=== PATIENT | male | born 1975 | race Caucasian/White ===

== ENCOUNTER → 2017-02-07 | Outpatient (CLI) | payer BC, OTHER ==
[~2017-02-07] VITALS: Ht 182.9 cm; Wt 151.0 kg
[~2017-02-07] MED LIST: CALCITRIOL100 GM TP; CALCIUM 500 +1 EAC5 PO; CLOBETASOL PROP60 G1 TP; CYMBALTA60 MG PO; GEMFIBROZIL 60600 M1 PO; LISINOPRIL-HCT1 EAC1 PO; MIRAPEX1 MG PO; MS CONTIN15 MG PO; MULTIVITAMINS PO; NAPROSYN500 MG PO; NORCO 10-325 T1 EACH PO; OXYCODONE HCL15 MG PO; PERCOCET 7.5-31 EACH PO; PROBIOTIC1 EAC1 PO; TRAMADOL 50 MG50 MG PO; VITAMIN D2000 UNIT PO; ZANAFLEX4 MG PO; ZYRTEC10 M4 PO
--- NOTE | ~2017-02-07 | HPC ---
[facility] [address] [place] [address] PAIN MANAGEMENT CONSULTATION Name: RUDDY CANAS Room #: REG [facility]Ad[facility]ist [facility] VallejoBraulio.#: [id number] Admission: 02/07/17 Attend Phys: Richard Canas DO Discharge: Date of : 75 Report #: [id number] THIS REPORT FOR: //name// CC: Juanjo Canas HISTORY OF PRESENT ILLNESS: The patient is a 41-year-old gentleman well known to the pain clinic, typically treated for axial back pain, lumbar radiculopathy, lumbar spondylosis, requiring complex medication management. Comorbidity includes morbid obesity. Last seen in the pain clinic 12/13/2015, continued on baseline medication including Percocet 7.5/325, one to two tablets after work and at bedtime, tramadol 50 mg 2 tablets 3 times a day, tizanidine 4 mg 3 times a day as needed for muscle spasm. Last urine drug screen 08/23/2016 was positive for prescribed medications. He returns to the pain clinic today noting pain has begun to get a little worse recently. He had fallen off of a ladder when he climbing down after changing a smoker detector battery at his parent's house. He notes he has been on Percocet for some time, though he had been on hydrocodone for about 4 years prior to coming to my service. With increasing pain and perhaps component of losing efficacy, we talked about opiate rotation. Given that he had been on hydrocodone for multiple years and has only been on Percocet for less than a year, we have elected to continue the Percocet. We did talk about other modalities for medication management. He does take tramadol 50 mg 2 tablets 3 times a day, i.e., about 300 mg. We noted this is a weak opiate agonist, but does have serotonin reuptake inhibition. We have elected to discontinue the Percocet and trial Cymbalta as a chronic pain agent, simply use acetaminophen 500 mg 2 tablets twice a day for pain and to change from Percocet 7.5/325 (oxycodone 7.5 mg with 325 mg acetaminophen) to simply 1/2 of 15 mg oxycodone tablet, i.e., 7.5 mg similarly 1-2 tablets after work and at bedtime. PHYSICAL EXAMINATION: Shows a 41-year-old gentleman, BMI is 45.1 kilograms per meter squared, virtually unchanged from the last visit. Vital signs stable. Alert and oriented to person, place and time, judged to be a reasonable historian. Rises from chair using armrest. Diffuse tenderness across the low back. Gait is tandem. Lumbar flexion is modestly limited. We reviewed the fact that opiate medications are being used to provide analgesia adequate to support activities of daily living, not attempting to achieve a specific pain score on the 0-10 Visual Analog Scale. The current opiate medications are providing sufficient analgesia to allow the patient to participate in activities of daily living. The patient is not exhibiting any aberrant behavior suggestive of drug diversion. The patient is not having any adverse reactions to medications. The patient is not suffering from daytime somnolence or mental acuity changes. The patient is managing opiate-induced constipation with appropriate pwqb-eqm-qnepysa agents and dietary considerations. The patient was counseled on concern for caution with operating [address] [address] PAIN MANAGEMENT CONSULTATION Name: RUDDY CANAS Room #: REG JOSH Sandoval#: [id number] Admission: 02/07/17 Attend Phys: Richard Canas DO Discharge: Date of : 75 Report #: [id number] a motor vehicle while using opiate medications. A physical exam was performed and the patient's functional status was evaluated. All patients with back pain were advised against the bed rest greater than 4 days and were advised to return to normal activities. Pain score assessment was noted and the treatment plan was reviewed with the patient. All current medications, both prescribed and OTC were reviewed and reconciled on the electronic medical record. Tobacco screening was accomplished and smoking cessation was advised when indicated. BMI was noted and diet/exercise modification was recommended for all patients following outside normal parameters. I reviewed with the patient today their responsibilities to safeguard prescription medications, reviewed their responsibility to utilize medications only as prescribed by the physician. They are to seek and receive pain medications only from 1 physician group ([facility]). They are to use 1 pharmacy and keep the clinic informed if they change pharmacies. Their responsibilities include making followup visits in a timely fashion and to avoid abrupt discontinuation of medication usage. Their responsibilities further include bringing their medications (bottles from the pharmacy with residual pills) to the visit for possible confirmation of pill counts and the patient understands it is their responsibility to submit to random drug screens to ensure both that the medications prescribed are present, and that no other controlled substances are present. All prescriptions provided today were generated electronically. ASSESSMENT: Axial back pain, lumbar radiculopathy, lumbar spondylosis, requiring complex medication management in a gentleman with concurrent comorbidity of morbid obesity. RECOMMENDATION: After a prolonged visit with the patient today, the patient was seen in clinic from 15:15-15:40, we have elected to do initiate the aforementioned medication changes. prescription is written for tizanidine 4 mg t.i.d., Cymbalta 60 mg 1 a day, oxycodone 15 mg one-half tablet one tablet after work and at bedtime, dispensed 40 oxycodone tablets, quantity sufficient for 2 months of current medication (second prescription for oxycodone 15 mg, dispensed 40 tablets to be released in weeks). Follow up in 2 months for reevaluation. By: [id number] Richard Canas DO /nt
[2017-02-07 15:07] VITALS: BP 148/72
== END ==
LOC: PAIN 07:16
DX: M47.26 Other spondylosis with radiculopathy, lumbar region (principal); E66.01 Morbid (severe) obesity due to excess calories; I10 Essential (primary) hypertension

== ENCOUNTER → 2017-04-04 | Outpatient (CLI) | payer BC, OTHER ==
[~2017-04-04] VITALS: Ht 182.9 cm; Wt 148.0 kg
--- NOTE | ~2017-04-04 | HPC ---
[facility] [address] [place] [address] PAIN MANAGEMENT CONSULTATION Name: RUDDY CANAS Room #: REG CLBellwood General HospitalLi.#: [id number] Admission: 04/04/17 Attend Phys: Richard Canas DO Discharge: Date of : 75 Report #: [id number] THIS REPORT FOR: //name// CC: Juanjo Canas HISTORY OF PRESENT ILLNESS: The patient is a very pleasant 41-year-old gentleman being treated for symptomatic lumbar radiculopathy, axial back pain, lumbar spondylosis, requiring complex medication management. He has been stable on Percocet 7.5/325 one tablet 2-3 times a day, tizanidine for breakthrough pain, tramadol for moderate pain. Last urine drug screen 08/23/2016 was positive for prescribed medications. He returns to pain clinic today. To his credit, he has been exercising and trying to lose some weight. He unfortunately went to [place] with his brother, doing some rock climbing. He fell and did have some trauma to his right shoulder and knee. The knee appears to be healing, but the shoulder is slurry control tender. He notes the Cymbalta that we tried did cause some nausea, but it has helped enough that he would like to continue the drug. He also unfortunately thinks it may have exacerbated his restless legs syndrome (he takes Mirapex 1 mg at bedtime from Dr. Dale). He started to take the tablet a little bit earlier in the day. I suggested that he trial taking half of Mirapex in the afternoon and 1 at night. If this does not afford better relief we can phone in a prescription for Cymbalta 30 mg 1 a day. Otherwise, he notes medications are providing sufficient analgesia to participate in activities of daily living, rates his pain about 5 on a 0-10 visual analog scale. PHYSICAL EXAMINATION: Shows decrease in weight. BMI is down to 44.2, it had been 45.1 kg per meter squared at last visit. Blood pressure 136/76, pulse 134, respirations are 14. Alert and oriented to person, place and time, judged to be a reasonable historian. Right shoulder has slight decreased range of motion. Active and passive rotation exacerbates pain. Resistance to rotator cuff muscles exacerbates pain a little bit, it is more in the shoulder joint rather than the large muscle groups. He does have some abrasion on the right knee. Axial back pain, no discrete trigger points noted. We reviewed the fact that opiate medications are being used to provide analgesia adequate to support activities of daily living, not attempting to achieve a specific pain score on the 0-10 Visual Analog Scale. The current opiate medications are providing sufficient analgesia to allow the patient to participate in activities of daily living. The patient is not exhibiting any aberrant behavior suggestive of drug diversion. [place] [address] PAIN MANAGEMENT CONSULTATION Name: RUDDY CANAS Room #: REG CLI Lori#: [id number] Admission: 04/04/17 Attend Phys: Richard Canas DO Discharge: Date of : 75 Report #: [id number] adverse reactions to medications. The patient is not suffering from daytime somnolence or mental acuity changes. The patient is managing opiate-induced constipation with appropriate angn-wye-vwncpjh agents and dietary considerations. The patient was counseled on concern for caution with operating a motor vehicle while using opiate medications. A physical exam was performed and the patient's functional status was evaluated. All patients with back pain were advised against the bed rest greater than 4 days and were advised to return to normal activities. Pain score assessment was noted and the treatment plan was reviewed with the patient. All current medications, both prescribed and OTC were reviewed and reconciled on the electronic medical record. Tobacco screening was accomplished and smoking cessation was advised when indicated. BMI was noted and diet/exercise modification was recommended for all patients following outside normal parameters. I reviewed with the patient today their responsibilities to safeguard prescription medications, reviewed their responsibility to utilize medications only as prescribed by the physician. They are to seek and receive pain medications only from 1 physician group ( [facility]). They are to use 1 pharmacy and keep the clinic informed if they change pharmacies. Their responsibilities include making followup visits in a timely fashion and to avoid abrupt discontinuation of medication usage. Their responsibilities further include bringing their medications (bottles from the pharmacy with residual pills) to the visit for possible confirmation of pill counts and the patient understands it is their responsibility to submit to random drug screens to ensure both that the medications prescribed are present, and that no other controlled substances are present. All prescriptions provided today were generated electronically. ASSESSMENT: Axial back pain, lumbar radiculopathy, lumbar spondylosis, requiring complex medication management. RECOMMENDATIONS: Continue oxycodone 7.5 mg (1/2 of a 15 mg oxycodone tablet) 4 times a day, limit 60 tablets for 30 days. Continue tramadol p.r.n. We phoned in a prescription for tizanidine 4 mg 1-2 at bedtime. We will continue Cymbalta presently at 60 mg, but again we will enable the nurse o call in a 30 mg prescription, 30 tablets with 2 refills if needed. Discharged in good and stable condition. Follow up in 2 months for reevaluation. By: [id number] Richard Canas DO /pennie
[2017-04-04 14:37] VITALS: BP 136/76
== END | disposition home or self-care (01) ==
LOC: PAIN 07:06
DX: M47.896 Other spondylosis, lumbar region (principal); M54.16 Radiculopathy, lumbar region; Z87.828 Personal history of other (healed) physical injury and trauma

== ENCOUNTER → 2017-05-29 | Outpatient (CLI) | payer BC, OTHER ==
[~2017-05-29] VITALS: Ht 182.9 cm; Wt 150.3 kg
[~2017-05-29] MED LIST changes: +LISINOPRIL20 MG PO; +TRANSDERM-SCO1 PATC1 TD
--- NOTE | ~2017-05-29 | HPC ---
[facility] [address] [place] [address] PAIN MANAGEMENT CONSULTATION Name: RUDDY CANAS Room #: REG CLVa [facility] HospitalBraulio.#: [id number] Admission: 05/29/17 Attend Phys: Richard Canas DO Discharge: Date of : 75 Report #: [id number] THIS REPORT FOR: //name// CC: Juanjo Canas The patient is a 41-year-old gentleman being treated for lumbar radiculopathy, axial back pain, lumbar spondylosis, requiring complex medication management. The patient was last seen in the pain clinic on 04/04/2017, continued on oxycodone 7.5 mg (one-half of the 15 mg tablet) typically t.i.d. We resumed Cymbalta 60 mg a day and he feels that this has been efficacious. Uses tizanidine 4 mg 1-2 at bedtime to help with muscle spasm with sleep. Last urine drug screen was on 08/23/2016, positive for prescribed medications. He returns to pain clinic today. Notes subjective pain score 6/10. He has had some increased pain in the past month, though he notes he has had increased stress at work with a major project, which fortunately will be done at the end of this month. He is also planning on a trip to [place], a cruise with his extended family in about 3 weeks. His weight is up a little bit, he is status post bariatric surgery. He notes with the work projects he has had more desk time and has been unable to do his usual exercises. Notes his pain is 6 on a 0-10 visual analog scale, primarily across the low back. Sharp, aching sensation, exacerbated with standing, walking and bending. He is anticipating buying an ergonomic office chair, apparently at the [employer] the bariatric chairs do not accommodate a person of his girth, he weighs 150 kilograms, BMI is 44.9 kilograms per meter squared. Blood pressure is elevated today 176/93, pulse is 111, respirations are 20. Otherwise, alert and oriented to person, place and time, judged to be a reasonable historian. Rises from chair using armrest. Diffuse axial back pain. Lower extremity strength is symmetric. Lumbar flexion is limited. We reviewed the fact that opiate medications are being used to provide analgesia adequate to support activities of daily living, not attempting to achieve a specific pain score on the 0-10 Visual Analog Scale. The current opiate medications are providing sufficient analgesia to allow the patient to participate in activities of daily living. The patient is not exhibiting any aberrant behavior suggestive of drug diversion. The patient is not having any adverse reactions to medications. The patient is not suffering from daytime somnolence or mental acuity changes. The patient is managing opiate-induced constipation with appropriate fhgu-mkz-uakypfi agents and dietary considerations. The patient was counseled on concern for caution with operating a motor vehicle while using opiate medications. A physical exam was performed and the patient's functional status was evaluated. All patients with back pain were advised against the bed rest greater than [address] [address] PAIN MANAGEMENT CONSULTATION Name: RUDDY CANAS Room #: REG CLJenna Sandoval#: [id number] Admission: 05/29/17 Attend Phys: Richard Canas DO Discharge: Date of : 75 Report #: [id number] days and were advised to return to normal activities. Pain score assessment was noted and the treatment plan was reviewed with the patient. All current medications, both prescribed and OTC were reviewed and reconciled on the electronic medical record. Tobacco screening was accomplished and smoking cessation was advised when indicated. BMI was noted and diet/exercise modification was recommended for all patients following outside normal parameters. I reviewed with the patient today their responsibilities to safeguard prescription medications, reviewed their responsibility to utilize medications only as prescribed by the physician. They are to seek and receive pain medications only from 1 physician group ( [facility]). They are to use 1 pharmacy and keep the clinic informed if they change pharmacies. Their responsibilities include making followup visits in a timely fashion and to avoid abrupt discontinuation of medication usage. Their responsibilities further include bringing their medications (bottles from the pharmacy with residual pills) to the visit for possible confirmation of pill counts and the patient understands it is their responsibility to submit to random drug screens to ensure both that the medications prescribed are present, and that no other controlled substances are present. All prescriptions provided today were generated electronically. ASSESSMENT: 1. Chronic axial back pain. 2. Lumbar radiculopathy. 3. Lumbar spondylosis. 4. Complex medication management, high risk medication management. RECOMMENDATIONS: 1. Continue oxycodone 15 mg, one half tablet t.i.d., limit 45 tablets for 30 days. I have taken the liberty of writing for 1 prescription today and a 4-week release with the caveat that the 4-week release prescription may be released early for travel. 2. I did take the liberty of offering the patient a prescription for scopolamine patch at his request for concern about motion sickness on his cruise. Scopolamine patch prescription is generated for 10 patches, 1.5 mg q.72 hours. I did renew Cymbalta 60 mg 1 a day. Follow up in 2 months for reevaluation. Discharged in good and stable condition. <ELECTRONICALLY SIGNED> By: Richard Canas, 05/30/17 [id number] Richard Canas DO /pennie
[2017-05-29 13:47] VITALS: BP 176/93
== END | disposition home or self-care (01) ==
LOC: PAIN 07:32
DX: M47.896 Other spondylosis, lumbar region (principal); M54.9 Dorsalgia, unspecified; G89.29 Other chronic pain; F11.20 Opioid dependence, uncomplicated; Z88.8 Allergy status to other drugs, medicaments and biological substances; Z79.899 Other long term (current) drug therapy

== ENCOUNTER → 2017-07-25 | Outpatient (CLI) | payer BC, OTHER ==
[~2017-07-25] VITALS: Ht 182.9 cm; Wt 150.6 kg
[~2017-07-25] MED LIST changes: +OXYCONTIN10 M1 PO; +ROXICODONE5 M2 PO
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
[2017-07-25 13:40] VITALS: BP 158/81
== END | disposition home or self-care (01) ==
LOC: PAIN 07:53
DX: M47.26 Other spondylosis with radiculopathy, lumbar region (principal); G25.81 Restless legs syndrome; Z68.42 Body mass index [BMI] 45.0-49.9, adult; Z79.899 Other long term (current) drug therapy

== ENCOUNTER → 2017-08-22 | Outpatient (CLI) | payer BC, OTHER ==
[~2017-08-22] VITALS: Ht 182.9 cm; Wt 152.9 kg
[~2017-08-22] MED LIST changes: +CARVEDILOL12.5 MG PO; +IRON325 PO; +REQUIP0.5 MG PO
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
[2017-08-22 14:07] VITALS: BP 150/104
== END | disposition home or self-care (01) ==
LOC: PAIN 07:17
DX: Z76.0 Encounter for issue of repeat prescription (principal); G89.29 Other chronic pain; M47.26 Other spondylosis with radiculopathy, lumbar region; E66.01 Morbid (severe) obesity due to excess calories; F41.8 Other specified anxiety disorders; Z68.42 Body mass index [BMI] 45.0-49.9, adult; Z88.6 Allergy status to analgesic agent; Z79.899 Other long term (current) drug therapy

== ENCOUNTER → 2017-10-13 | Outpatient (CLI) | payer BC, OTHER ==
[~2017-10-13] VITALS: Ht 185.4 cm; Wt 153.7 kg
--- NOTE | ~2017-10-13 | HPC ---
[facility] [address] [place] [address] PAIN MANAGEMENT CONSULTATION Name: RUDDY CANAS [id number] Admission: 10/13/17 Attend Phys: Richard Canas DO Discharge: Date of : 75 Report #: [id number] THIS REPORT FOR: //name// CC: Juanjo Canas HISTORY OF PRESENT ILLNESS: The patient is a 41-year-old gentleman well known to pain clinic, typically treated for axial back pain, lumbar spondylosis, lumbar radiculopathy requiring high risk complex medication management. Comorbidity includes morbid obesity, anxiety. Last seen in pain clinic on 08/22/2017. We discussed insomnia concerns and anxiety, talked about sleep hygiene and mindful meditation. Continued OxyContin 10 mg b.i.d. with oxycodone 5 mg t.i.d. He returns to pain clinic today noting that these medications have provided significant analgesia, he is able to participate in activities of daily living. Unfortunately, he did recently have a significant pulmonary infection, he was actually treated with 2 different antibiotics including Z-EDGAR and I believe a cephalosporin for community-acquired pneumonia. He states he has been fairly sedentary for 3 weeks, but is generally getting better overall. He rates his pain at 6 on a VAS, chronic back pain since he was a teenager, flared 5 years ago after bariatric surgery. PHYSICAL EXAMINATION: Shows a 41-year-old gentleman, BMI is 44.7 kilograms per meter squared. Blood pressure is modestly elevated at 141/96, pulse 108, respirations of 16. Alert and oriented to person, place and time, judged to be a reasonable historian. Rises from chair using armrest. Diffuse axial back pain. Gait is tandem. Lower extremity strength is preserved. We reviewed the fact that opiate medications are being used to provide analgesia adequate to support activities of daily living, not attempting to achieve a specific pain score on the 0-10 Visual Analog Scale. The current opiate medications are providing sufficient analgesia to allow the patient to participate in activities of daily living. The patient is not exhibiting any aberrant behavior suggestive of drug diversion. The patient is not having any adverse reactions to medications. The patient is not suffering from daytime somnolence or mental acuity changes. The patient is managing opiate-induced constipation with appropriate afmj-nir-cjpcfoo agents and dietary considerations. The patient was counseled on concern for caution with operating a motor vehicle while using opiate medications. A physical exam was performed and the patient's functional status was evaluated. All patients with back pain were advised against the bed rest greater than 4 days and were advised to return to normal activities. Pain score assessment was noted and the treatment plan was reviewed with the patient. All current medications, both prescribed and OTC [place] [address] PAIN MANAGEMENT CONSULTATION Name: RUDDY CANAS Room #: REG CLI Lori#: [id number] Admission: 10/13/17 Attend Phys: Richard Canas DO Discharge: Date of : 75 Report #: [id number] electronic medical record. Tobacco screening was accomplished and smoking cessation was advised when indicated. BMI was noted and diet/exercise modification was recommended for all patients following outside normal parameters. I reviewed with the patient today their responsibilities to safeguard prescription medications, reviewed their responsibility to utilize medications only as prescribed by the physician. They are to seek and receive pain medications only from 1 physician group ( [facility]). They are to use 1 pharmacy and keep the clinic informed if they change pharmacies. Their responsibilities include making followup visits in a timely fashion and to avoid abrupt discontinuation of medication usage. Their responsibilities further include bringing their medications (bottles from the pharmacy with residual pills) to the visit for possible confirmation of pill counts and the patient understands it is their responsibility to submit to random drug screens to ensure both that the medications prescribed are present, and that no other controlled substances are present. All prescriptions provided today were generated electronically. ASSESSMENT: Chronic axial back pain, lumbar radiculopathy, component of myofascial pain and restless leg syndrome requiring high risk complex medication management. RECOMMENDATIONS: 1. Again, encouraged dietary discretion and increased activity. 2. Continue OxyContin 10 mg b.i.d. and oxycodone 5 mg t.i.d., I have taken the liberty of writing for 2 months of current medication. Continue Cymbalta 60 mg 1 a day, tizanidine 4 mg t.i.d. for spasm and Requip 0.5 mg 2-3 at bedtime. Today, we did get a buccal swab, no aberrant behavior suggestive of drug diversion, simply complying with our opiate consent to treat contract. Discharged in good and stable condition. <ELECTRONICALLY SIGNED> By: Richard Canas DO 10/15/17 0834 1535 2100 Richard Canas DO /nt
[2017-10-13 13:38] VITALS: BP 141/96
== END ==
LOC: PAIN 07:33
DX: M47.896 Other spondylosis, lumbar region (principal); M54.16 Radiculopathy, lumbar region; G25.81 Restless legs syndrome; M79.1 Myalgia; Z79.899 Other long term (current) drug therapy

== ENCOUNTER → 2017-12-08 | Outpatient (CLI) | payer BC, OTHER ==
[~2017-12-08] VITALS: Ht 185.4 cm; Wt 154.1 kg
[~2017-12-08] MED LIST changes: +AUGMENTIN 500-1 EACH PO; +DELTASONE20 MG PO; +HYDROCODONE-AP1 EAC6 PO; +HYSINGLA ER40 MG PO; +NORCO 5-325 TA1 EACH PO
--- NOTE | ~2017-12-08 | HPC ---
[facility] [address] [place] [address] PAIN MANAGEMENT CONSULTATION Name: RUDDY CANAS Room #: REG CLOlive [facility] CenterLi.#: [id number] Admission: 12/08/17 Attend Phys: Richard Canas DO Discharge: Date of : 75 Report #: [id number] THIS REPORT FOR: //name// CC: Juanjo Canas HISTORY OF PRESENT ILLNESS: The patient is a 42-year-old gentleman long treated for lumbar radiculopathy, lumbar spondylosis, axial back pain, morbid obesity requiring high risk complex medication management. Last seen in pain clinic on 10/13/2017. Continued the patient on OxyContin 10 mg b.i.d., oxycodone 5 mg t.i.d., Cymbalta 60 mg daily, tizanidine 4 mg t.i.d. for spasm and Requip 0.5 two to three bedtime for RLS type symptoms. The patient had been on oxycodone 1/2 of a 15 mg tablet, i.e., 7.5 mg for some time. This was losing efficacy and in July we started him on OxyContin 10 mg b.i.d. He returns to pain clinic today. Last random drug screen 10/13/2017 was positive for prescribed medications. I had a prolonged visit today, from 14:39-15:05, greater than 50% of this 25+ minute visit was spent counseling the patient. He feels he is losing efficacy with his current medication. Rates his pain as 7-8 on a VAS. Notes pain is exacerbated with standing, walking, bending. He was helping his flip the bed mattress and developed some muscle spasm last week, which he states was quite disabling. We had a long talk today about opiate-induced hyperalgesia, which I feel may be exhibiting. PHYSICAL EXAMINATION: Otherwise, physical exam is relatively unchanged. An 42-year-old gentleman, BMI is 44.8 kilograms per meter squared. No history of arthritis. Blood pressure is modestly elevated at 167/107, pulse 99. Again, subjective pain score 7-8 on a VAS. States he tripped and fell while hiking, though this was last summer. No falls in the last 3 months. He is hypertensive. Medicine list was reconciled. He has an opiate consent to treat contract; contract was signed on 06/21/2016 and again last random drug screen was last visit 10/13/2017, positive for prescribed medications. He does not use tobacco products. Diffuse tenderness in the low back, mid back area. Lumbar flexion is limited to about 50 degrees. Gait is tandem. We reviewed the fact that opiate medications are being used to provide analgesia adequate to support activities of daily living, not attempting to achieve a specific pain score on the 0-10 Visual Analog Scale. The current opiate medications are providing sufficient analgesia to allow the patient to [address] [address] PAIN MANAGEMENT CONSULTATION Name: RUDDY CANAS Room #: REG CL Lroi#: [id number] Admission: 12/08/17 Attend Phys: Richard Canas DO Discharge: Date of : 75 Report #: [id number] participate in activities of daily living. The patient is not exhibiting any aberrant behavior suggestive of drug diversion. The patient is not having any adverse reactions to medications. The patient is not suffering from daytime somnolence or mental acuity changes. The patient is managing opiate-induced constipation with appropriate nzyp-uww-gekmzqq agents and dietary considerations. The patient was counseled on concern for caution with operating a motor vehicle while using opiate medications. A physical exam was performed and the patient's functional status was evaluated. All patients with back pain were advised against the bed rest greater than 4 days and were advised to return to normal activities. Pain score assessment was noted and the treatment plan was reviewed with the patient. All current medications, both prescribed and OTC were reviewed and reconciled on the electronic medical record. Tobacco screening was accomplished and smoking cessation was advised when indicated. BMI was noted and diet/exercise modification was recommended for all patients following outside normal parameters. I reviewed with the patient today their responsibilities to safeguard prescription medications, reviewed their responsibility to utilize medications only as prescribed by the physician. They are to seek and receive pain medications only from 1 physician group ( [facility]). They are to use 1 pharmacy and keep the clinic informed if they change pharmacies. Their responsibilities include making followup visits in a timely fashion and to avoid abrupt discontinuation of medication usage. Their responsibilities further include bringing their medications (bottles from the pharmacy with residual pills) to the visit for possible confirmation of pill counts and the patient understands it is their responsibility to submit to random drug screens to ensure both that the medications prescribed are present, and that no other controlled substances are present. All prescriptions provided today were generated electronically. ASSESSMENT: Lumbar radiculopathy, lumbosacral spondylosis, axial back pain requiring high risk complex medication management. Comorbidity includes Morbid obesity. RECOMMENDATIONS: I had a long discussion today with the patient today about therapeutic options. Currently, he is taking 35 mg oxycodone equivalent to about 55 mg of morphine. We have elected to trial an opiate rotation, we will rotate the Hysingla ER 40 mg 1 a day with hydrocodone 5/325, limit b.i.d. I have taken the liberty of writing for 2 months of current medication. Follow up at that time, earlier if needed. <ELECTRONICALLY SIGNED> By: Richard Canas DO 12/10/17 0811 1545 16 Richard Canas DO /nt
[2017-12-08 14:26] VITALS: BP 167/107
== END ==
LOC: PAIN 11-28 09:04
DX: M54.16 Radiculopathy, lumbar region (principal); M47.897 Other spondylosis, lumbosacral region; E66.01 Morbid (severe) obesity due to excess calories; Z79.899 Other long term (current) drug therapy; Z68.41 Body mass index [BMI] 40.0-44.9, adult

== ENCOUNTER → 2018-02-02 | Outpatient (CLI) | payer BC, OTHER ==
[~2018-02-02] VITALS: Ht 185.4 cm; Wt 150.7 kg
--- NOTE | ~2018-02-02 | HPC ---
[facility] [address] [place] [address] PAIN MANAGEMENT CONSULTATION Name: RUDDY CANAS Room #: REG CL MLi.#: [id number] Admission: 02/02/18 Attend Phys: Richard Canas DO Discharge: Date of : 75 Report #: [id number] THIS REPORT FOR: //name// CC: Juanjo Canas The patient is a 42-year-old gentleman long treated for axial back pain, lumbar spondylosis, component of lumbar radiculopathy requiring complex medication management. Comorbidity includes morbid obesity. Last seen in pain clinic on 12/08/2017. We rotated from OxyContin and oxycodone to Hysingla 40 mg 1 a day with p.r.n. hydrocodone 5/325, max 2 a day. Continue Requip 0.5 mg 2-3 at bedtime, Cymbalta 60 mg daily and tizanidine for spasm. He returns to pain clinic today noting medication rotation has been quite efficacious. He still notes his pain impact score is 44/70, but feels his pain is better improved. He rates as a 6 on a VAS. He states he is a little more functional. He had been walking 2 months ago, but the past month, he tells me he fell twice. States he was simply "clumsy." States his legs did not give out. PHYSICAL EXAMINATION: Shows lower extremity strength is symmetric to hip flexion, lower extremity extension and flexion, dorsiflexion and plantar flexion. Gait is tandem. Blood pressure 158/95, pulse 93, respirations 16. He is 332 pounds at 61 inches. BMI remains over 50 kilograms per meter squared. Opiate risk assessment tool score is in the low risk category. Opiate consent to treat contract was signed on 06/21/2016. Last random drug screen on 10/14/2017 was positive for prescribed medication. Again, the patient notes that the opiate rotation has been efficacious, feels that he is little more functional. He is desirous of continuing current medication. We reviewed the fact that opiate medications are being used to provide analgesia adequate to support activities of daily living, not attempting to achieve a specific pain score on the 0-10 Visual Analog Scale. The current opiate medications are providing sufficient analgesia to allow the patient to participate in activities of daily living. The patient is not exhibiting any aberrant behavior suggestive of drug diversion. The patient is not having any adverse reactions to medications. The patient is not suffering from daytime somnolence or mental acuity changes. The patient is managing opiate-induced constipation with appropriate znwd-bvk-swvxtas agents and dietary considerations. The patient was counseled on concern for caution with operating a motor vehicle while using opiate medications. A physical exam was performed and the patient's functional status was evaluated. All patients with back pain were advised against the bed rest greater than 4 days and were advised to return to normal activities. Pain score assessment was [address] [address] PAIN MANAGEMENT CONSULTATION Name: RUDDY CANAS Room #: REG JOSH Sandoval#: [id number] Admission: 02/02/18 Attend Phys: Richard Canas DO Discharge: Date of : 75 Report #: [id number] noted and the treatment plan was reviewed with the patient. All current medications, both prescribed and OTC were reviewed and reconciled on the electronic medical record. Tobacco screening was accomplished and smoking cessation was advised when indicated. BMI was noted and diet/exercise modification was recommended for all patients following outside normal parameters. I reviewed with the patient today their responsibilities to safeguard prescription medications, reviewed their responsibility to utilize medications only as prescribed by the physician. They are to seek and receive pain medications only from 1 physician group ( [facility]). They are to use 1 pharmacy and keep the clinic informed if they change pharmacies. Their responsibilities include making followup visits in a timely fashion and to avoid abrupt discontinuation of medication usage. Their responsibilities further include bringing their medications (bottles from the pharmacy with residual pills) to the visit for possible confirmation of pill counts and the patient understands it is their responsibility to submit to random drug screens to ensure both that the medications prescribed are present, and that no other controlled substances are present. All prescriptions provided today were generated electronically. ASSESSMENT: Symptomatic axial back pain, lumbar spondylosis, requiring complex medication management and history of morbid obesity. RECOMMENDATION: Continue Hysingla 40 mg at bedtime. Continue hydrocodone 5/325 up to b.i.d. for breakthrough pain, Requip 0.5 mg 2-3 at bedtime. Suggest water aerobics as exercise for core strengthening and general weight loss. 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 He has been on opiate agents for greater than a year and he is struggling with weight reduction. I suspect he may have some component of hypotestosteronism. <ELECTRONICALLY SIGNED> By: Richard Canas DO 02/06/18 0944 1555 [id number] Richard Canas DO /nt
[2018-02-02 14:28] VITALS: BP 158/95
== END ==
LOC: PAIN 07:12
DX: M54.9 Dorsalgia, unspecified (principal); M47.896 Other spondylosis, lumbar region; E66.01 Morbid (severe) obesity due to excess calories; Z79.899 Other long term (current) drug therapy; Z68.43 Body mass index [BMI] 50.0-59.9, adult